=== PATIENT | male | born 1955 | race African-American/Black ===

== ENCOUNTER 2016-02-27 16:05 | Emergency (ER) | payer MEDICAID ==
[~2016-02-27] VITALS: Ht 165.1 cm; Wt 68.0 kg
[~2016-02-27 16:05] MED LIST: ACETAMINOPHEN120 MG PO; IBUPROFEN600 MG ORAL; TAMSULOSIN HCL0.4 MG ORAL; TRAMADOL HCL50 MG ORAL
[2016-02-27 16:33] VITALS: BP 109/69
[2016-02-27] MEDS ORDERED: KNEE STABILIZE1 EACH MC (17:46)
[2016-02-27] MEDS ORDERED: TYLENOL EXTRA500 MG ORAL (17:46)
[2016-02-27 18:08] VITALS: BP 109/69
--- NOTE | 2016-02-27 22:34 | Emergency Room Report ---
History of Present Illness General Chief Complaint: Pain Source: Patient Present Illness HPI The patient is a 60-year-old male sent in with left knee pain which began today. Patient denies injury to the knee and is unsure why the pain started. The pain is described as a 10 out of 10 dull ache it does not radiate. No numbness or tingling. Pain worse with walking. Allergies: Coded Allergies: No Known Allergies (Unverified , 09/17/15) Patient History Past Medical History: see triage record Pertinent Family History: none Reviewed Nursing Documentation: PMH: Agreed, PSxH: Agreed Nursing Documentation-PMH Hx Hypertension: Yes Hx Gastrointestinal Problems: Yes - PROSTATE PROBLEM Review of Systems All Other Systems: negative except mentioned in HPI Physical Exam Vital Signs Date Time Temp Pulse Resp B/P Pulse Ox O2 Delivery O2 Flow Rate FiO2 02/27/16 16:20 96.8 64 15 109/69 98 Room Air Sp02 EP Interpretation: reviewed, normal General Appearance: no apparent distress, alert, GCS 15, non-toxic Head: normocephalic, atraumatic Eyes: bilateral eye PERRL, bilateral eye normal inspection ENT: hearing grossly normal, normal pharynx, no angioedema, normal voice Musculoskeletal: back normal, gait/station normal, normal range of motion, tender - TTP over entire knee Neurologic: alert, oriented x3, responsive, motor strength/tone normal, sensory intact, speech normal Skin: normal color, no rash, warm/dry, well hydrated Medical Decision Making PA Attestation Dr. Stack is my supervising physician. Patient management was discussed with my supervising physician Diagnostic Impression: Primary Impression: Knee osteoarthritis ER Course The patient is a 60-year-old male sent in with left knee pain which began today. Ddx considered include but not limited to sprain/strain, fracture, contusion, gout PE:Vitals WNL. NAD L knee: No edema. No erythema. Full AROM. TTP over joint line. SILT. Left knee x-ray is consistent with OA. The patient was given Tylenol for pain The pt will be DC'ed home with prescription for tylenol and will FU with PMD Other X-Ray Diagnostic Results Other X-Ray Diagnostic Results : X-Ray Ordered: L knee Date: Feb 27, 2016 EP Interpretation: Yes Findings: no fractures, no dislocation, no soft tissue swelling Number of Views: 3 PA Scribe Text I am acting as scribe for my supervising physician. My supervising physician's interpretation of the L knee xrays are there are no fractures, dislocations or soft tissue swelling. Last Vital Signs Date Time Temp Pulse Resp B/P Pulse Ox O2 Delivery O2 Flow Rate FiO2 02/27/16 18:08 96.8 97 15 109/69 98 Room Air Status: improved Disposition: HOME, SELF-CARE Condition: Improved Scripts Leg Brace (KNEE STABILIZER) 1 Each Each 1 EACH , #1 Prov: TESFAYE CORDOVA 02/27/16 Acetaminophen* (TYLENOL EXTRA STRENGTH*) 500 Mg Tablet 500 MG ORAL Q8H Y for Prn Headache/Temp > 101, #30 TAB 0 Refills Prov: TESFAYE CORDOVA 02/27/16 Patient Instructions: Osteoarthritis Additional Instructions: I discussed my findings with the patient. All questions and concerns have been answered. Treatment and medication compliance have been addressed. I advised the patient that they need to follow up with PMD in 3-5 days. Return to ED if pain remains or worsens, numbness or tingling occurs, new rash is noticed, fever is noticed, or if needed for any reason. Patient verbalized understanding of discharge instructions. TESFAYE CORDOVA Feb 27, 2016 22:34
--- NOTE | 2016-02-28 11:37 | Diagnostic Imaging Report ---
Indication: Pain 3 views of the left knee were obtained. Findings: There is opacification of the suprapatellar region consistent with a joint effusion. There is moderate osteophyte formation involving the 3 compartments of the knee with joint space narrowing. Impression: Osteoarthritis Joint effusion
== END 2016-02-27 18:08 | disposition home or self-care (01) ==
LOC: EMR 16:52
DX: M17.9 Osteoarthritis of knee, unspecified (principal); I10 Essential (primary) hypertension
CPT/HCPCS: 99284